=== PATIENT | male | born 2000 | race Caucasian/White ===

== ENCOUNTER 2021-11-24 00:18 | Emergency (ER) | payer MEDICAID ==
[~2021-11-24] VITALS: Ht 167.6 cm; Wt 49.0 kg
[2021-11-24 00:22] VITALS: BP 114/57
--- NOTE | 2021-11-24 00:44 | NUR ---
Dr. Jameson examining patient.
[2021-11-24] MEDS ORDERED: ONDANSETRON 4 MG ODT PO ONE (00:45)
[2021-11-24] MEDS ORDERED: ONDA-188 SL (01:00)
[2021-11-24] MEDS ORDERED: NACL 0.9% 2,000 ML IV ONE (01:25)
--- NOTE | 2021-11-24 01:49 | NUR ---
URINE OBTAINED AND SENT TO LAB
--- NOTE | 2021-11-24 01:49 | NUR ---
20G IV CATH PLACED IN L AC
[2021-11-24 02:04] LABS: BASOPHILS # (AUTO) 0.1 K/uL (0.00-0.22); BASOPHILS % (AUTO) 0.4 % (0.0-2.0); HEMOGLOBIN 15.4 g/dL (12.0-18.0); LYMPHOCYTES # (AUTO) 0.9 K/uL (2.0-11.5); LYMPHOCYTES % (AUTO) 5.9 % (20.5-51.1); MEAN CORPUSCULAR HEMOGLOBIN 30 pg (27-31); MEAN CORPUSCULAR HGB CONC 34 g/dL (33-37); MEAN CORPUSCULAR VOLUME 86.9 fL (80-94); MONOCYTES # (AUTO) 0.3 K/uL (0.8-1.0); MONOCYTES % (AUTO) 1.7 % (1.7-9.3); NEUTROPHILS # (AUTO) 14.4 K/uL (1.8-7.7); PLATELET COUNT (AUTO) 375 K/uL (140-450); RED BLOOD CELL COUNT(AUTO) 5.18 MIL/uL (4.20-6.10); RED CELL DISTRIBUTION WIDTH 13.9 % (11.6-13.7); WHITE BLOOD COUNT (AUTO) 15.7 K/uL (4.8-10.8)
[2021-11-24 02:13] LABS: ANION GAP 21.4 (8-16); CARBON DIOXIDE 23.2 mmol/L (21-32); CREATININE 1.1 mg/dL (0.6-1.3); POTASSIUM 3.6 mmol/L (3.5-5.1); TOTAL BILIRUBIN 1.4 mg/dL (0.0-1.0)
--- NOTE | 2021-11-24 02:44 | NUR ---
PT TOLERATED NS FLUIDS. DENIES ANY PAIN OR NAUSEA. RESP EVEN AND UNLABORED. PT IS [id number]
[2021-11-24 03:00] VITALS: BP 119/57
[2021-11-24 05:45] LABS: BARBITURATE, URINE NEGATIVE ng/ml (NEG <=200); BENZODIAZEPINE, URINE NEGATIVE ng/mL (NEG <=200); CANNABINOID, URINE POSITIVE ng/mL (NEG <=50); COCAINE, URINE NEGATIVE ng/mL (NEG <=300); OPIATE, URINE NEGATIVE ng/mL (NEG <=2000); PHENCYCLIDINE SCREEN,URINE NEGATIVE ng/mL (NEG <=25)
== END 2021-11-24 03:00 | disposition home or self-care (01) ==
LOC: MED 00:18
DX: R11.2 Nausea with vomiting, unspecified (principal)
CPT/HCPCS: 36415; 80053; 80305; 81002; 85025; 96360; 99283; G0482; Q0162; J7030

== ENCOUNTER 2022-08-27 16:46 | Emergency (ER) | payer MEDICAID ==
[~2022-08-27] VITALS: Ht 162.6 cm; Wt 43.6 kg
[~2022-08-27 16:46] MED LIST: ONDA-188 SL
[2022-08-27 17:04] VITALS: BP 135/91; PULSE 84; RESP 20; TEMP 97.7; O2SAT 100
[2022-08-27] MEDS ORDERED: NACL 0.9% 1,000 ML IV ONE (17:35)
[2022-08-27] MEDS ORDERED: HALOPERIDOL IM 5 MG/ML VIAL IM ONE (17:35)
[2022-08-27] MEDS ORDERED: diphenhydrAMINE 50 MG/ML VIAL IVP ONE (17:35)
--- NOTE | 2022-08-27 17:44 | NUR ---
PT AMBULATED TO BED 11
--- NOTE | 2022-08-27 17:50 | NUR ---
ESTABLISHED IV ACCESS, 18G TO RIGHT FOREARM
--- NOTE | 2022-08-27 18:00 | NUR ---
PT SHIVERING, C/O CHILLS AND FEELING COLD, PROVIDED ANOTHER BLANKET PER PT REQUEST
[2022-08-27 18:04] LABS: BASOPHILS # (AUTO) 0.1 K/uL (0.00-0.22); BASOPHILS % (AUTO) 0.3 % (0.0-2.0); EOSINOPHILS # (AUTO) 0.1 K/uL (0-0.4); EOSINOPHILS % (AUTO) 0.3 % (0.0-4.0); HEMATOCRIT 44.7 % (36-52); HEMOGLOBIN 15.1 g/dL (12.0-18.0); LYMPHOCYTES # (AUTO) 0.9 K/uL (2.0-11.5); LYMPHOCYTES % (AUTO) 4.4 % (20.5-51.1); MEAN CORPUSCULAR HEMOGLOBIN 29 pg (27-31); MEAN CORPUSCULAR HGB CONC 34 g/dL (33-37); MEAN CORPUSCULAR VOLUME 86.8 fL (80-94); MONOCYTES % (AUTO) 4.9 % (1.7-9.3); NEUTROPHILS # (AUTO) 19.3 K/uL (1.8-7.7); NEUTROPHILS % (AUTO) 90.1 % (42.2-75.2); PLATELET COUNT (AUTO) 355 K/uL (140-450); RED BLOOD CELL COUNT(AUTO) 5.15 MIL/uL (4.20-6.10); RED CELL DISTRIBUTION WIDTH 13.9 % (11.6-13.7); WHITE BLOOD COUNT (AUTO) 21.4 K/uL (4.8-10.8)
[2022-08-27 18:15] LABS: ALBUMIN 5.5 g/dL (3.4-5.0); ANION GAP 18.5 (8-16); CARBON DIOXIDE 26.6 mmol/L (21-32); CREATININE 1.1 mg/dL (0.6-1.3); POTASSIUM 4.1 mmol/L (3.5-5.1)
--- NOTE | 2022-08-27 18:15 | NUR ---
PT CURRENTLY SLEEPING
--- NOTE | 2022-08-27 19:03 | NUR ---
PT RESTING COMFORTABLY, CURRENTLY SLEEPING WITH NO SIGNS OF DISTRESS NOTED.
--- NOTE | 2022-08-27 19:12 | NUR ---
Pt report given to ROE GARCÍA. Transfer of care at this time.
--- NOTE | 2022-08-27 19:54 | NUR ---
Pt. is comfortably sleeping without episodes of vomitting. Waken up to get Vital signs and all in normal limits.
--- NOTE | 2022-08-27 20:00 | NUR ---
PO challenge ordered and Pt. tolerated without feeling of nausea and vomitting.
[2022-08-27] MEDS ORDERED: ONDA-188 PO (20:03)
[2022-08-27 20:35] VITALS: BP 117/67; PULSE 91; RESP 18; TEMP 97.8; O2SAT 98
--- NOTE | 2022-08-27 20:38 | NUR ---
Patient discharged. Written and verbal after care instructions given and explained. New Rx given Zofran. Patient verbalized understanding. Ambulatory. All questions addressed prior to discharge. Advised to follow up with PMD.
[2022-08-29] MEDS ORDERED: METO-485 PO (12:38)
[2022-08-29] MEDS ORDERED: CAPS42.514 TP (12:38)
== END 2022-08-27 20:38 | disposition home or self-care (01) ==
LOC: MED 16:46
DX: R11.2 Nausea with vomiting, unspecified (principal); R53.1 Weakness; R42 Dizziness and giddiness; F12.90 Cannabis use, unspecified, uncomplicated; Z79.899 Other long term (current) drug therapy
CPT/HCPCS: 36415; 80053; 83690; 85025; 96361; 96372; 96374; 99284; J1200; J1630; J7030